=== PATIENT | male | born 1940 | race Hispanic/Latino ===

== ENCOUNTER 2018-03-18 11:57 | Outpatient (CLI) | payer MEDICARE, OTHER | END 2018-03-18 11:58 | disposition home or self-care (01) | LOC: LAB 11:57 ==

== ENCOUNTER 2018-04-29 10:09 | Outpatient (CLI) | payer MEDICARE, OTHER | END 2018-04-29 10:10 | disposition home or self-care (01) | LOC: LAB 10:09 ==